=== PATIENT | female | born 1995 | race Caucasian/White ===

== ENCOUNTER 2017-12-14 00:42 | Emergency (ER) | payer OTHER ==
[~2017-12-14] VITALS: Ht 157.5 cm; Wt 61.2 kg
[~2017-12-14 00:42] MED LIST: HYDR-1231 PO; IPRA4AER IH
[2017-12-14] MEDS ORDERED: RT-SODIUM CHL INHALATION 3 ML VIAL IH ONE (01:00)
[2017-12-14] MEDS ORDERED: hydrOXYzine (VISTARIL) 25 MG CAP PO ONE (01:00)
--- NOTE | 2017-12-14 01:17 | ED General ---
General Chief Complaint: Respiratory Problems Stated Complaint: POSS ASTHMA ATTACK Nursing Triage Note: SOA X1 HR. Nursing Sepsis Screen: No Definite Risk Source of Information: Patient History of Present Illness Date Seen by Provider: Dec 14, 2017 Time Seen by Provider: 00:53 Initial Comments PT ARRIVES VIA POV WITH FEMALE FRIEND/ROOM MATE PT WANTING HER FRIEND TO DO ALL TALKING FOR HER, STATING SHE "CAN'T TALK" C/O DIFFICULTY BREATHING--"ASTHMA" PT STATES SHE BEGAN HAVING SYMPTOMS AT MIDNIGHT--STATES SHE WOKE UP AROUND MIDNIGHT AND FELT SHORT OF BREATH STATES SHE USED HER INHALER TWICE, LAST TIME WAS 6 MINUTES AGO--NO RELIEF ROOM MATE STATES SHE "PASSED OUT" "BECAUSE SHE COULDN'T BREATHE"--NO INJURY ON ARRIVAL, PT IS COMPLETELY HYSTERICAL, VERY DRAMATIC AND CRYING UNCONTROLLABLY --WITH FORCED UPPER AIRWAY "WHEEZING" AND STATES SHE "CAN'T TALK" --THIS STOPS WHEN DISTRACTED, AND PT BREATHS NORMALLY AND TALKS NORMALLY WHEN DISTRACTED OR INSTRUCTED ON SLOWING HER BREATHING DOWN PT DENIES BEING UNDER ANY STRESS RIGHT NOW PT DOES STATE SHE STARTED HAVING COLD SYMPTOMS LAST WEEK WITH A RUNNY NOSE AND POSSIBLY HAD A FEVER, BUT NOT TODAY HAS NOT TAKEN ANYTHING FOR THOSE SYMPTOMS PCP: RACH CAMPOS IN [place] PT IS ALSO A [employer] STUDENT--LIVES IN AN APARTMENT WITH ROOM MATE PT IS FROM [facility] Allergies and Home Medications Allergies Coded Allergies: amoxicillin (Verified Allergy, Unknown, 07/30/14) clavulanic acid (Verified Allergy, Unknown, 07/30/14) Uncoded Allergies: PENICILLIN (Allergy, Unknown, 07/30/14) Home Medications Cefdinir 300 Mg Capsule, 300 MG PO BID Prescribed by: CARLITA ROBERTSON on 12/14/17119 Fluticasone Propionate 9.9 Ml [place].susp, 2 SPRAYS NS BID Prescribed by: CARLITA ROBERTSON on 12/14/17119 Hydroxyzine Pamoate 50 Mg Capsule, 50 MG PO Q6H Prescribed by: CARLITA ROBERTSON on 12/14/17119 Loratadine/Pseudoephedrine 1 Each Tab.er.12h, 1 EACH PO BID Prescribed by: CARLITA ROBERTSON on 12/14/17119 Patient Home Medication List Home Medication List Reviewed: Yes Review of Systems Review of Systems Constitutional: see HPI EENTM: see HPI Respiratory: see HPI; No cough Cardiovascular: chest pain (TIGHTNESS) Gastrointestinal: no symptoms reported Genitourinary: no symptoms reported : No (LMP--SOMETIME AROUND A MONTH AGO. NORMAL. ON OCP'S) Musculoskeletal: no symptoms reported Skin: no symptoms reported Psychiatric/Neurological: See HPI, Anxiety Hematologic/Lymphatic: No Symptoms Reported Immunological/Allergic: no symptoms reported Past Zarqfkt-Bekfvd-Igyhzz Hx Patient Social History Alcohol Use: Denies Use Recreational Drug Use: No Smoking Status: Never a Smoker Recent Foreign Travel: No Contact w/Someone Who Travel: No Recent Infectious Disease Expo: No Recent Hopitalizations: No Immunizations Up To Date Tetanus Booster (TDap): Less than 5yrs PED Vaccines UTD: Yes Seasonal Allergies Seasonal Allergies: No Past Medical History Surgeries: Yes Tonsillectomy Respiratory: Yes Asthma Cardiac: No Neurological: No : No Last Menstrual Period: Nov 19, 2017 Reproductive Disorders: No Genitourinary: No Gastrointestinal: No Musculoskeletal: No Endocrine: No HEENT: No Cancer: No Psychosocial: No Integumentary: No Blood Disorders: No Family Medical History No Pertinent Family Hx Physical Exam Vital Signs Vital Signs - First Documented 12/14/17 00:45 Temp 98.7 Pulse 121 Resp 22 B/P (MAP) 127/57 (80) Pulse Ox 100 O2 Delivery Room Air Capillary Refill : Less Than 3 Seconds Height, Weight, BMI Height: 5'2" Weight: 135lbs. oz. 61.871947ju; 24.69 BMI Method:Stated General Appearance: Anxious, Other (PT HYSTERICAL, VERY DRAMATIC, CRYING UNCONTROLLABLY, WITH FORCED UPPER AIRWAY NOISE, AND STATES SHE "CAN'T TALK" -- THIS BEHAVIOR STOPS WHEN DISTRACTED, AND ON EXAM, AND PT IS ABLE TO BREATHE AND TALK NORMALLY) HEENT: PERRL/EOMI, TMs Normal, Pharynx Normal, Moist Mucous Membranes, Other ( NASAL MUCOSAL EDEMA, CLEAR RHINORRHEA--PT IS CRYING. + MAXILLARY SINUS TENDERNESS BILATERALLY. ) Neck: Full Range of Motion, Normal Inspection, Non Tender, Supple Respiratory: Other (HYPERVENTILATING, NO WHEEZING, ONLY FORCED UPPER AIRWAY NOISE. ) Cardiovascular: No Murmur, Tachycardia Gastrointestinal: Soft Extremity: Normal Inspection Neurologic/Psychiatric: Alert, Oriented x3, laborer rags II-XII Norm as Tested Skin: Normal Color, Warm/Dry Progress/Results/Core Measures Suspected Sepsis Recent Fever Within 48 Hours: No Infection Criteria Present: None New/Unexplained Altered Menta: No Sepsis Screen: No Definite Risk SIRS Temperature:98.7 Pulse: 121 Respiratory Rate: 22 Blood Pressure 127 /57 Mean: 80 Results/Orders My Orders Orders - CARLITA ROBERTSON DO Hydroxyzine Oral (Vistaril Capsule) (12/14/17 01:00) Sodium Chl Inhalation (Rt-Sodium Chl Inh (12/14/17 01:00) Rt Request For Service (12/14/17 01:00) Svn Small Volume Nebulizer (12/14/17 01:00) Medications Given in ED Current Medications Medications Dose Ordered Sig/Karla Route Start Time Stop Time Status Last Admin Dose Admin Hydroxyzine Pamoate 50 mg ONCE ONCE PO 12/14/17 01:00 12/14/17 01:02 DC 12/14/17 01:07 50 MG Sodium Chloride 3 ml ONCE ONCE IH 12/14/17 01:00 12/14/17 01:02 DC 12/14/17 01:07 3 ML Vital Signs/I&O 12/14/17 12/14/17 12/14/17 00:45 01:06 01:26 Temp 98.7 98.7 Pulse 121 96 Resp 22 16 B/P (MAP) 127/57 (80) 127/57 (80) Pulse Ox 100 100 100 O2 Delivery Room Air Room Air Room Air Capillary Refill : Less Than 3 Seconds Blood Pressure Mean: 80 Progress Note : Progress Note ABLE TO CALM PT AND HER BREATHING RETURNED TO NORMAL GAVE SALINE NEB TREATMENT, WHICH PT STATES HELPED ALSO GAVE VISTARIL PT NOW MUCH CALMER, NO LONGER HYPERVENTILATING, TALKING IN A NORMAL VOICE, NO LONGER CRYING, RESPIRATIONS EVEN AND UNLABORED. PT IS NOW SOMEWHAT BELLIGERENT TOWARDS OTHER STAFF MEMBERS PT NOW ADMITS THAT THIS SAME THING HAS HAPPENED BEFORE, MULTIPLE TIMES, INCLUDING THE "PASSING OUT" WHEN SHE STARTS HYPERVENTILATING. AND SHE ADMITS THAT HER SYMPTOMS "SNOWBALL" AND SHE BECOMES SEVERELY ANXIOUS. Departure Impression Primary Impression: Acute sinusitis Additional Impressions: History of asthma Anxiety Hyperventilation Disposition: 01 HOME, SELF-CARE Condition: Improved Departure-Patient Inst. Referrals: [facility] Patient Instructions: Anxiety, Adult (DC), Asthma, Adult (DC), Hyperventilation , Sinusitis, Adult (DC) Add. Discharge Instructions: HOME, REST LOTS OF CLEAR LIQUIDS FOLLOW UP WITH [facility] TOMORROW IF NO BETTER RETURN TO ER IF WORSE All discharge instructions reviewed with patient and/or family. Voiced understanding. Scripts Loratadine/Pseudoephedrine (Claritin-D 12 Hour Tablet) 1 Each Tab.er.12h 1 EACH PO BID, #20 TAB Prov: CARLITA ROBERTSON DO 12/14/17 Fluticasone Propionate (Flonase Allergy Relief) 9.9 Ml [place].susp 2 SPRAYS NS BID, #1 SPRAY Prov: CARLITA ROBERTSON DO 12/14/17 Cefdinir (Cefdinir) 300 Mg Capsule 300 MG PO BID, #30 CAP Prov: CARLITA ROBERTSON DO 12/14/17 Hydroxyzine Pamoate (Vistaril) 50 Mg Capsule 50 MG PO Q6H for Anxiety, #10 CAP Prov: CARLITA ROBERTSON DO 12/14/17 CARLITA ROBERTSON DO Dec 14, 2017 01:17
[2017-12-14] MEDS ORDERED: HYDR50CA PO (01:20)
[2017-12-14] MEDS ORDERED: LORA1TAB59 PO (01:20)
[2017-12-14] MEDS ORDERED: FLUT9.9S NS (01:20)
[2017-12-14] MEDS ORDERED: CEFD300C3 PO (01:20)
[2017-12-14 01:26] VITALS: BP 127/57
== END 2017-12-14 01:26 | disposition home or self-care (01) ==
LOC: EDUNIT# 00:42 → EDBD 00:44 → ER 00:44
DX: J45.909 Unspecified asthma, uncomplicated (principal); F41.9 Anxiety disorder, unspecified; Z88.0 Allergy status to penicillin; Z88.8 Allergy status to other drugs, medicaments and biological substances; Z79.51 Long term (current) use of inhaled steroids; Z90.89 Acquired absence of other organs
CPT/HCPCS: 94640; 99283

== ENCOUNTER 2018-01-01 14:29 | Emergency (ER) | payer OTHER ==
[~2018-01-01] VITALS: Ht 157.5 cm; Wt 56.7 kg
[~2018-01-01 14:29] MED LIST changes: +CEFD300C3 PO; +FLUT9.9S NS; +HYDR50CA PO; +LORA1TAB59 PO
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
[2018-01-01 16:03] LABS: BASOPHILS % (AUTO) 0 % (0-10); EOSINOPHILS # (AUTO) 0.1 10^3/uL (0.0-0.3); EOSINOPHILS % (AUTO) 3 % (0-10); HEMATOCRIT 38 % (35-52); HEMOGLOBIN 13.2 G/DL (11.5-16.0); LYMPHOCYTES # (AUTO) 1.9 X 10^3 (1.0-4.0); LYMPHOCYTES % (AUTO) 36 % (12-44); MEAN CORPUSCULAR HEMOGLOBIN 31 PG (25-34); MEAN CORPUSCULAR HGB CONC 35 G/DL (32-36); MEAN CORPUSCULAR VOLUME 89 FL (80-99); MEAN PLATELET VOLUME 11.3 FL (7.4-10.4); MONOCYTES # (AUTO) 0.5 X 10^3 (0.0-1.0); MONOCYTES % (AUTO) 9 % (0-12); NEUTROPHILS # (AUTO) 2.8 X 10^3 (1.8-7.8); NEUTROPHILS % (AUTO) 52 % (42-75); PLATELET COUNT 186 10^3/uL (130-400); RED BLOOD COUNT 4.26 10^6/uL (4.35-5.85); RED CELL DISTRIBUTION WIDTH 12.9 % (10.0-14.5); WHITE BLOOD COUNT 5.3 10^3/uL (4.3-11.0)
--- NOTE | 2018-01-01 16:05 | ED Psychosocial ---
General Chief Complaint: Substance Abuse Stated Complaint: ALLERGIC REACTION Nursing Triage Note: ARRIVED VIA AMB TO TRIAGE ROOM ET STATES SHE DRANK ONE BOTTLE OF DAYQUIL 12 OZ COLD AND FLU, IBUPORGEN 800MG, AND X4 NAPROXEN AT APPX 0800 TODAY ET TRYING TO HARM SELF. DENIES WANTING TO HARM SELF AT THIS TIME NOW. Source: patient, other (friend) Exam Limitations: no limitations History of Present Illness Date Seen by Provider: Jan 01, 2018 Time Seen by Provider: 16:00 Initial Comments Patient is a 22-year-old female that was sent over from [facility] with reports of drinking an entire bottle of DayQuil 12 ounces cold and flu, taking 4 ibuprofen 800 mg, 3 naproxen, and 1 doxycycline, 1 Flagyl in an attempt to harm herself at 0800 this morning. She reports that she threw up about 30 minutes after taking everything. She states that she's had a very bad month and has been arguing with her family and she states "pushed her over the edge was that she got in argument with one of her friends today and she thought it would be better if she was not here anymore". She verbalizes that she may be very big mistake and regrets what she has done and has no desire to harm herself any more at time of arrival to the emergency room. Poison control was called on arrival to the ED and they advised to watch QRS complex. Timing/Duration: this morning Associated Symptoms: anxiety, ingestion, suicidal ideation Allergies and Home Medications Allergies Coded Allergies: amoxicillin (Verified Allergy, Unknown, 07/30/14) clavulanic acid (Verified Allergy, Unknown, 07/30/14) Uncoded Allergies: PENICILLIN (Allergy, Unknown, 07/30/14) Home Medications Cefdinir 300 Mg Capsule, 300 MG PO BID Prescribed by: CARLITA ROBERTSON on 12/14/17119 Fluticasone Propionate 9.9 Ml [place].susp, 2 SPRAYS NS BID Prescribed by: CARLITA ROBERTSON on 12/14/17119 Hydroxyzine Pamoate 50 Mg Capsule, 50 MG PO Q6H Prescribed by: CARLITA ROBERTSON on 12/14/17119 Loratadine/Pseudoephedrine 1 Each Tab.er.12h, 1 EACH PO BID Prescribed by: CARLITA ROBERTSON on 9/14/18 0120 Patient Home Medication List Home Medication List Reviewed: Yes Review of Systems Constitutional: see HPI; No chills, No fever Gastrointestinal: see HPI, vomiting Psychiatric/Neurological: See HPI, Depressed, Emotional Problems, Other All Other Systems Reviewed Negative Unless Noted: Yes Past Ybokbml-Ycfzal-Gitspe Hx Past Med/Social Hx: Reviewed Nursing Past Med/Soc Hx Patient Social History Alcohol Use: Occasionally Uses Recreational Drug Use: No Smoking Status: Never a Smoker Recent Foreign Travel: No Contact w/Someone Who Travel: No Recent Infectious Disease Expo: No Recent Hopitalizations: No Immunizations Up To Date Tetanus Booster (TDap): Less than 5yrs PED Vaccines UTD: Yes Seasonal Allergies Seasonal Allergies: No Past Medical History Surgeries: Yes Tonsillectomy Respiratory: Yes Asthma Cardiac: No Neurological: No Reproductive Disorders: No Genitourinary: No Gastrointestinal: No Musculoskeletal: No Endocrine: No HEENT: No Cancer: No Psychosocial: Yes Suicide Attempts Integumentary: No Blood Disorders: No Family Medical History Reviewed Nursing Family Hx No Pertinent Family Hx Physical Exam Vital Signs - First Documented 01/01/18 14:50 Temp 97.8 Pulse 71 Resp 16 B/P (MAP) 92/57 (69) Pulse Ox 100 O2 Delivery Room Air Capillary Refill : Less Than 3 Seconds Height, Weight, BMI Height: 5'2.00" Weight: 125lbs. oz. 56.251634ah; 24.69 BMI Method:Stated General Appearance: WD/WN, no apparent distress HEENT: PERRL/EOMI, normal ENT inspection, TMs normal, pharynx normal Neck: non-tender, full range of motion, supple, normal inspection Respiratory: chest non-tender, lungs clear, normal breath sounds, no respiratory distress, no accessory muscle use, respiratory distress Cardiovascular: normal peripheral pulses, regular rate, rhythm, no edema, no gallop, no JVD, no murmur Gastrointestinal: normal bowel sounds, non tender, soft, no organomegaly, no pulsatile mass Neurologic/Psychiatric: alert, normal mood/affect, oriented x 3 Appearance/Memory: appropriate appearance, appropriate insight, neat, no memory impairment, denies illness Behavior/Eye Contact: cooperative, good eye contact, normal speech Thoughts/Hallucinations: normal thought pattern, no apparent hallucination Skin: normal color, warm/dry Progress/Results/Core Measures Results/Orders Lab Results Laboratory Tests Test 01/01/18 15:55 01/01/18 16:42 Range/Units White Blood Count 5.3 4.3-11.0 10^3/uL Red Blood Count 4.26 L 4.35-5.85 10^6/uL Hemoglobin 13.2 11.5-16.0 G/DL Hematocrit 38 35-52 % Mean Corpuscular Volume 89 80-99 FL Mean Corpuscular Hemoglobin 31 25-34 PG Mean Corpuscular Hemoglobin Concent 35 32-36 G/DL Red Cell Distribution Width 12.9 10.0-14.5 % Platelet Count 186 130-400 10^3/uL Mean Platelet Volume 11.3 H 7.4-10.4 FL Neutrophils (%) (Auto) 52 42-75 % Lymphocytes (%) (Auto) 36 12-44 % Monocytes (%) (Auto) 9 0-12 % Eosinophils (%) (Auto) 3 0-10 % Basophils (%) (Auto) 0 0-10 % Neutrophils # (Auto) 2.8 1.8-7.8 X 10^3 Lymphocytes # (Auto) 1.9 1.0-4.0 X 10^3 Monocytes # (Auto) 0.5 0.0-1.0 X 10^3 Eosinophils # (Auto) 0.1 0.0-0.3 10^3/uL Basophils # (Auto) 0.0 0.0-0.1 10^3/uL Sodium Level 141 135-145 MMOL/L Potassium Level 4.1 3.6-5.0 MMOL/L Chloride Level 106 98-107 MMOL/L Carbon Dioxide Level 25 21-32 MMOL/L Anion Gap 10 5-14 MMOL/L Blood Urea Nitrogen 12 7-18 MG/DL Creatinine 0.82 0.60-1.30 MG/DL Estimat Glomerular Filtration Rate > 60 BUN/Creatinine Ratio 15 Glucose Level 90 70-105 MG/DL Calcium Level 9.6 8.5-10.1 MG/DL Corrected Calcium 8.5-10.1 MG/DL Total Bilirubin 0.5 0.1-1.0 MG/DL Aspartate Amino Transf (AST/SGOT) 18 5-34 U/L Alanine Aminotransferase (ALT/SGPT) 16 0-55 U/L Alkaline Phosphatase 36 L 40-136 U/L Total Protein 7.2 6.4-8.2 GM/DL Albumin 4.6 H 3.2-4.5 GM/DL Amylase Level 56 25-125 U/L Salicylates Level < 5.0 L 5.0-20.0 MG/DL Acetaminophen Level < 10 L 10-30 UG/ML Serum Alcohol < 10 <10 MG/DL Urine Color YELLOW Urine Clarity CLEAR Urine pH 6 5-9 Urine Specific [place] 1.015 L 1.016-1.022 Urine Protein NEGATIVE NEGATIVE Urine Glucose (UA) NEGATIVE NEGATIVE Urine Ketones 1+ H NEGATIVE Urine Nitrite NEGATIVE NEGATIVE Urine Bilirubin NEGATIVE NEGATIVE Urine Urobilinogen NORMAL NORMAL MG/DL Urine Leukocyte Esterase NEGATIVE NEGATIVE Urine RBC (Auto) 2+ H NEGATIVE Urine RBC NONE /HPF Urine WBC NONE /HPF Urine Squamous Epithelial Cells 5-10 /HPF Urine Crystals NONE /LPF Urine Bacteria NEGATIVE /HPF Urine Casts NONE /LPF Urine Mucus NEGATIVE /LPF Urine Culture Indicated NO Urine Test NEGATIVE NEGATIVE Urine Opiates Screen NEGATIVE NEGATIVE Urine Oxycodone Screen NEGATIVE NEGATIVE Urine Methadone Screen NEGATIVE NEGATIVE Urine Propoxyphene Screen NEGATIVE NEGATIVE Urine Barbiturates Screen NEGATIVE NEGATIVE Ur Tricyclic Antidepressants Screen NEGATIVE NEGATIVE Urine Phencyclidine Screen NEGATIVE NEGATIVE Urine Amphetamines Screen NEGATIVE NEGATIVE Urine Methamphetamines Screen NEGATIVE NEGATIVE Urine Benzodiazepines Screen NEGATIVE NEGATIVE Urine Cocaine Screen NEGATIVE NEGATIVE Urine Cannabinoids Screen NEGATIVE NEGATIVE My Orders Orders - JUDITH BHATT Ua Culture If Indicated (01/01/18 15:09) Cbc With Automated Diff (01/01/18 15:09) Comprehensive Metabolic Panel (01/01/18 15:09) Alcohol (01/01/18 15:09) Drug Screen Stat (Urine) (01/01/18 15:09) Acetaminophen (01/01/18 15:09) Salicylate (01/01/18 15:09) Ekg Tracing (01/01/18 15:09) Hcg,Qualitative Urine (01/01/18 15:09) Saline Lock/Iv-Start (01/01/18 15:09) Amylase (01/01/18 15:09) Monitor-Rhythm Ecg Trace Only (01/01/18 15:09) Ns Iv 1000 Ml (Sodium Chloride 0.9%) (01/01/18 16:51) Ns Iv 1000 Ml (Sodium Chloride 0.9%) (01/01/18 17:15) Vital Signs/I&O Blood Pressure Mean: 69 Progress Progress Note : Progress Note 1500: I spoke to Dr. Sullivan and discussed the case with them. He believes that she does not meet admission criteria given the laboratory findings. He recommends proceeding with mental health screening. [facility] was called at this time. 1700: [facility] returned my phone call and they said it would be 45 minutes before they could be out here to screen the patient. 1750: Mental health here to evaluate patient. 1830: [facility] has concluded their evaluation. They believe that she has a good support system at home (roommate and sister )and someone with her at all times to keep a close eye on her. They believe that she can follow up with [facility] mental health services. The patient agrees with plans of care, plans for discharge, return precautions were given and understands if she has any more thoughts of harming herself to return back to the emergency room. EKG : EKG Time: 15:44 Rate: 65 Rhythm: Normal Sinus Intervals: Normal ECG Comparisson: No Previous ECG Available ECG Impression: Normal Departure Impression Primary Impression: Drug overdose Additional Impression: Encounter for screening examination for mental health and behavioral disorders Disposition: 01 HOME, SELF-CARE Condition: Stable/Unchanged Departure-Patient Inst. Decision time for Depature: 18:29 Referrals: NO,LOCAL PHYSICIAN (PCP) Primary Care Physician Patient Instructions: ALCOHOL AND SUBSTANCE ABUSE, OUTPT MENTAL HEALTH SERVICES Add. Discharge Instructions: Follow-up with [facility] first thing tomorrow morning to set up outpatient mental health services. Call first thing tomorrow morning. If you feel like harming yourself return back to the emergency room immediately or for any worsening symptoms or concerns as needed. All discharge instructions reviewed with patient and/or family. Voiced understanding. JUDITH BHATT Jan 01, 2018 16:05
[2018-01-01 16:23] LABS: ALANINE AMINOTRANSFERASE 16 U/L (0-55); ALBUMIN 4.6 GM/DL (3.2-4.5); ALKALINE PHOSPHATASE 36 U/L (40-136); AMYLASE 56 U/L (25-125); BILIRUBIN,TOTAL 0.5 MG/DL (0.1-1.0); BUN/CREATININE RATIO 15; CALCIUM 9.6 MG/DL (8.5-10.1); CARBON DIOXIDE 25 MMOL/L (21-32); CHLORIDE 106 MMOL/L (98-107); CREATININE SERUM 0.82 MG/DL (0.60-1.30); GFR ESTIMATED > 60; GLUCOSE 90 MG/DL (70-105); POTASSIUM 4.1 MMOL/L (3.6-5.0); SALICYLATE < 5.0 MG/DL (5.0-20.0); SODIUM 141 MMOL/L (135-145); TOTAL PROTEIN 7.2 GM/DL (6.4-8.2)
[2018-01-01 16:27] LABS: ACETAMINOPHEN < 10 UG/ML (10-30)
[2018-01-01] MEDS ORDERED: NS IV 1000 ML 1,000 ML ONE (16:51)
[2018-01-01 16:52] LABS: BILIRUBIN,URINE NEGATIVE (NEGATIVE); CLARITY,URINE CLEAR; COLOR,URINE YELLOW; GLUCOSE, URINE (UA) NEGATIVE (NEGATIVE); KETONES,URINE 1+ (NEGATIVE); LEUKOCYTE ESTERASE ,URINE NEGATIVE (NEGATIVE); NITRITE,URINE NEGATIVE (NEGATIVE); PH,URINE 6 (5-9); PROTEIN,URINE NEGATIVE (NEGATIVE); UROBILINOGEN,URINE NORMAL (NORMAL)
[2018-01-01 16:55] LABS: HCG,QUALITATIVE URINE NEGATIVE (NEGATIVE)
[2018-01-01 16:59] LABS: BACTERIA,URINE NEGATIVE /HPF
[2018-01-01 17:03] LABS: AMPHETAMINE SCREEN, URINE NEGATIVE (NEGATIVE); BARBITURATE SCREEN URINE NEGATIVE (NEGATIVE); BENZODIAZEPINES SCREEN URINE NEGATIVE (NEGATIVE); CANNABINOID SCREEN, URINE NEGATIVE (NEGATIVE); COCAINE SCREEN URINE NEGATIVE (NEGATIVE); METHADONE STAT NEGATIVE (NEGATIVE); METHAMPHETAMINE SCREEN URINE S NEGATIVE (NEGATIVE); OPIATE SCREEN URINE NEGATIVE (NEGATIVE); OXYCODONE STAT NEGATIVE (NEGATIVE); PROPOXYPHENE STAT NEGATIVE (NEGATIVE); TRICYCLIC ANTIDEPRESSANTS SCRE NEGATIVE (NEGATIVE)
[2018-01-01] MEDS ORDERED: NS IV 1000 ML 1,000 ML IV SCH (17:15)
[2018-01-01 19:04] VITALS: BP 100/57
== END 2018-01-01 19:04 | disposition home or self-care (01) ==
LOC: EDUNIT# 14:29 → ER 14:30
DX: T50.992A Poisoning by other drugs, medicaments and biological substances, intentional self-harm, initial encounter (principal); J45.909 Unspecified asthma, uncomplicated; Z91.5 Personal history of self-harm; Z88.0 Allergy status to penicillin; Z88.8 Allergy status to other drugs, medicaments and biological substances; Z79.51 Long term (current) use of inhaled steroids; Z90.89 Acquired absence of other organs
CPT/HCPCS: 36415; 80053; 80306; 80320; 80329; 81000; 82150; 84703; 85025; 93005; 93041

== ENCOUNTER 2018-03-06 12:20 | Emergency (ER) | payer OTHER ==
[~2018-03-06] VITALS: Ht 157.5 cm; Wt 54.4 kg
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
[2018-03-06 14:50] VITALS: BP 117/80
== END 2018-03-06 14:50 | disposition home or self-care (01) ==
LOC: ER 12:20 → EDUNIT# 12:20 → ER 14:50
DX: S09.90XA Unspecified injury of head, initial encounter (principal); S00.83XA Contusion of other part of head, initial encounter; S60.052A Contusion of left little finger without damage to nail, initial encounter; J45.909 Unspecified asthma, uncomplicated; Z91.5 Personal history of self-harm; Z88.0 Allergy status to penicillin; Z88.8 Allergy status to other drugs, medicaments and biological substances; Z79.51 Long term (current) use of inhaled steroids; Z90.89 Acquired absence of other organs; Y04.8XXA Assault by other bodily force, initial encounter
CPT/HCPCS: 70450; 70486; 73140

== ENCOUNTER 2020-10-19 18:28 | Emergency (ER) | payer OTHER ==
[~2020-10-19] VITALS: Ht 157.4 cm; Wt 58.9 kg
[2020-10-19] MEDS ORDERED: diphenhydrAMINE 50 MG/ML INJ (BENADRYL) IM ONE (18:45)
--- NOTE | 2020-10-19 18:55 | ED General ---
General Chief Complaint: Allergic Reaction Stated Complaint: FACIAL SWELLING Nursing Triage Note: PT REPORTS EATING A SPICY CHICKEN SANDWICH AT [employer] WHEN PT FELT IF MOUTH WAS SWELLING AND NECK BEGAN ITCHING. PT REPORTS THIS WAS 10 MINUTES PRE[employer]IN[employer]. PT NOT SHOWING ANY SIGNS OF DISTRESS AT TIME OF ASSESSMENT. Source of Information: Patient Exam Limitations: No Limitations (WANDY LEONE APRN) History of Present Illness Date Seen by Provider: Oct 19, 2020 Time Seen by Provider: 18:43 Initial Comments This is a well-appearing 24-year-old female who presents to the ER with complaints of swelling of her cheeks and her mouth after eating a spicy chicken sandwich from [employer] approximately 20 minutes prior to arrival. States that she has never had food allergies in the past however she does have a penicillin allergy and has severe reaction when taking penicillin. States that it feels a little difficult to swallow. However no shortness of breath no difficulty breathing. Has not taken anything prior to arrival. (WANDY LEONE APRN) Allergies and Home Medications Allergies Coded Allergies: amoxicillin (Verified Allergy, Unknown, 07/30/14) clavulanic acid (Verified Allergy, Unknown, 07/30/14) Uncoded Allergies: PENICILLIN (Allergy, Unknown, 07/30/14) Home Medications Cefdinir 300 Mg Capsule, 300 MG PO BID Prescribed by: CARLITA ROBERTSON on 12/14/17119 Fluticasone Propionate 9.9 Ml [place].susp, 2 SPRAYS NS BID Prescribed by: CARLITA ROBERTSON on 12/14/17119 Hydroxyzine Pamoate 50 Mg Capsule, 50 MG PO Q6H Prescribed by: CARLITA ROBERTSON on 12/14/17119 Loratadine/Pseudoephedrine 1 Each Tab.er.12h, 1 EACH PO BID Prescribed by: CARLITA ROBERTSON on 12/14/17119 Patient Home Medication List Home Medication List Reviewed: Yes (WANDY LEONE APRN) Review of Systems Review of Systems Constitutional: no symptoms reported EENTM: see HPI Respiratory: no symptoms reported Cardiovascular: no symptoms reported Gastrointestinal: no symptoms reported Genitourinary: no symptoms reported Musculoskeletal: no symptoms reported Skin: no symptoms reported Psychiatric/Neurological: No Symptoms Reported Hematologic/Lymphatic: No Symptoms Reported Immunological/Allergic: no symptoms reported (WANDY LEONE APRN) Past [id number] Hx Patient Social History Tobacco Use?: Yes Tobacco type used: Cigarettes Smokeless Tobacco Frequency: Current Someday User Substance use?: Yes Substance type: Marijuana Alcohol Use?: Yes Alcohol Frequency: Once in a while Pt feels they are or have been: No (WANDY LEONE APRN) Immunizations Up To Date Tetanus Booster (TDap): Less than 5yrs PED Vaccines UTD: Yes (WANDY LEONE APRN) Seasonal Allergies Seasonal Allergies: No (WANDY LEONE APRN) Past Medical History Surgeries: Yes Adenoidectomy, Tonsillectomy Respiratory: Yes Asthma Cardiac: No Neurological: No Reproductive Disorders: No Genitourinary: No Gastrointestinal: No Musculoskeletal: No Endocrine: No HEENT: No Cancer: No Psychosocial: Yes Suicide Attempts Integumentary: No Blood Disorders: No (WANDY LEONE APRN) Family Medical History No Pertinent Family Hx (WANDY LEONE APRN) Physical Exam Vital Signs Vital Signs - First Documented 10/19/20 18:38 Pulse 83 Resp 20 B/P (MAP) 100/64 (76) Pulse Ox 97 O2 Delivery Room Air (SULTANA ZACARIAS MD) Vital Signs Capillary Refill : Less Than 3 Seconds (WANDY LEONE APRN) Height, Weight, BMI Height: 5'2.00" Weight: 120lbs. oz. [id number]; 23.00 BMI Method:Stated General Appearance: No Apparent Distress, WD/WN Eyes: Bilateral Eye Normal Inspection, Bilateral Eye PERRL, Bilateral Eye EOMI HEENT: PERRL/EOMI, TMs Normal, Normal ENT Inspection, Pharynx Normal, Moist Mucous Membranes, Other (neg uvular swelling. ) Neck: Full Range of Motion, Normal Inspection, Non Tender Respiratory: Lungs Clear, Normal Breath Sounds, No Accessory Muscle Use, No Respiratory Distress Cardiovascular: Regular Rate, Rhythm, No Edema, No Murmur Gastrointestinal: Normal Bowel Sounds, Non Tender, Soft Back: Normal Inspection Extremity: Normal Inspection, Normal Range of Motion Neurologic/Psychiatric: Alert, Oriented x3, No Motor/Sensory Deficits, Normal Mood/Affect Skin: Normal Color, Warm/Dry (WANDY LEONE APRN) Progress/Results/Core Measures Suspected Sepsis SIRS Temperature: Pulse: 83 Respiratory Rate: 20 Blood Pressure 100 /64 Mean: 76 (WANDY LEONE APRN) Results/Orders Vital Signs/I&O 10/19/20 10/19/20 18:38 20:04 Pulse 83 83 Resp 20 20 B/P (MAP) 100/64 (76) 100/64 (76) Pulse Ox 97 97 O2 Delivery Room Air Room Air (SULTANA ZACARIAS MD) Vital Signs/I&O Capillary Refill : Less Than 3 Seconds (WANDY LEONE APRN) Blood Pressure Mean: 76 Progress Note : Progress Note Given Benadryl and Pepcid. Reported feeling much improved. Reviewed discharge POC and she is agreeable with plan. (WANDY LEONE APRN) Departure Impression Primary Impression: Allergic reaction Disposition: HOME, SELF-CARE Condition: Improved Departure-Patient Inst. Decision time for Depature: 19:44 (WANDY LEONE APRN) Referrals: [facility] (PCP/Family) Primary Care Physician Patient Instructions: Allergic Reaction ED Add. Discharge Instructions: Plan: 1. Take Benadryl 25mg by mouth every 4-6 hours as needed for itching/swelling. 2. Avoid trigger foods. 3. Return for any new, worsening, or concerning symptoms. All discharge instructions reviewed with patient and/or family. Voiced unders tanding. ATTENDING PHYSICIAN NOTE: I was physically present as attending physician in the emergency department during the care of this patient, but I was not directly involved in the decision making or delivery of care for this patient. (SULTANA ZACARIAS MD) WANDY LEONE APRN Oct 19, 2020 18:54 SULTANA ZACARIAS MD Oct 22, 2020 06:28
[2020-10-19] MEDS ORDERED: diphenhydrAMINE 50 MG/ML INJ (BENADRYL) IVP ONE (19:00)
[2020-10-19] MEDS ORDERED: FAMOTIDINE 20MG/2ML IV (PEPCID) IVP ONE (19:00)
[2020-10-19 20:04] VITALS: BP 100/64
== END 2020-10-19 20:04 | disposition home or self-care (01) ==
LOC: EDUNIT# 18:28 → ER 18:31
DX: T78.1XXA Other adverse food reactions, not elsewhere classified, initial encounter (principal); J45.909 Unspecified asthma, uncomplicated; F17.210 Nicotine dependence, cigarettes, uncomplicated; Z88.0 Allergy status to penicillin